=== PATIENT | female | born 1945 | race Asian ===

== ENCOUNTER 2021-10-25 21:08 | Emergency (ER) | payer OTHER ==
[~2021-10-25] VITALS: Ht 167.6 cm; Wt 91.6 kg
[2021-10-25 21:43] LABS: PLATELET COUNT 165 K/uL (152-353)
[2021-10-25 22:12] LABS: POTASSIUM 4.1 mmol/L (3.6-5.2)
[2021-10-25 22:24] VITALS: BP 163/76; TEMP 98.3
[2021-10-25] MEDS ORDERED: AMIODARONE HYD200 MG PO (23:39)
[2021-10-25] MEDS ORDERED: AMLODIPINE PO (23:40)
[2021-10-25] MEDS ORDERED: LIPITOR40 MG PO (23:41)
[2021-10-25] MEDS ORDERED: ESCITALOPRAM10 MG PO (23:41)
[2021-10-25] MEDS ORDERED: COZAAR100 MG PO (23:42)
[2021-10-25] MEDS ORDERED: XARELTO20 MG PO (23:43)
[2021-10-25] MEDS ORDERED: METO100T37 PO (23:43)
[2021-10-25] MEDS ORDERED: KEPPRA1000 MG PO (23:44)
[2021-10-25] MEDS ORDERED: DIVALPROEX250 M1 PO (23:45)
[2021-10-25] MEDS ORDERED: HALO5INJ3 IM (23:46)
[2021-10-25] MEDS ORDERED: TYLENOL325 MG PO (23:47)
[2021-10-25] MEDS ORDERED: MELATONIN3 M1 PO (23:47)
== END 2021-10-25 22:24 | disposition still patient (30) ==
LOC: ED 21:17
PROVIDERS: Emergency Medicine
DX: G30.8 Other Alzheimer's disease (principal); F02.81 Dementia in other diseases classified elsewhere, unspecified severity, with behavioral disturbance; N39.0 Urinary tract infection, site not specified; Z11.52 Encounter for screening for COVID-19; Z04.6 Encounter for general psychiatric examination, requested by authority
CPT/HCPCS: 36415; 80053; 81000; 85027; 87086; 87088; 87635; 93005; 99283; U0003